=== PATIENT | female | born 1980 | race American Indian/Alaskan Native ===

== ENCOUNTER 2019-03-10 12:58 | Inpatient (IN) | payer OTHER ==
[~2019-03-10] VITALS: Ht 170.2 cm; Wt 73.5 kg
[2019-03-10] MEDS ORDERED: PRENATAL TABLE1 EACH PO (13:57)
[2019-03-10] MEDS ORDERED: FOLIC ACID1 MG PO (13:58)
[2019-03-10] MEDS ORDERED: IRON325 MG PO (13:58)
== END 2019-03-11 11:45 | disposition home or self-care (01) | DRG 832 ==
LOC: OBS/DEL 12:58 → LDR 13:03 → OBS/DEL 13:03 → LDR 03-11 11:45
PROVIDERS: ADMIT Specialist
PROC: BY4GZZZ Ultrasonography of Third Trimester, Multiple Gestation (ICD-10-PCS; principal; 2019-03-10)
PROC: 4A1HXCZ Monitoring of Products of Conception, Cardiac Rate, External Approach (ICD-10-PCS; 2019-03-10)
DX: O30.003 Twin pregnancy, unspecified number of placenta and unspecified number of amniotic sacs, third trimester (principal); O47.03 False labor before 37 completed weeks of gestation, third trimester; Z34.03 Encounter for supervision of normal first pregnancy, third trimester

== ENCOUNTER 2019-04-21 07:08 | Inpatient (IN) | payer OTHER ==
[~2019-04-21] VITALS: Ht 170.2 cm; Wt 2244.0 kg
[~2019-04-21 07:08] MED LIST: FOLIC ACID1 MG PO; IRON325 MG PO; PRENATAL TABLE1 EACH PO
== END 2019-04-27 19:29 | disposition home or self-care (01) | DRG 786 ==
LOC: SURG-SUITE 07:08 → LDR 07:08 → O/R 11:43 → OB/GYN 13:28 → SURG-SUITE 14:49
PROVIDERS: ADMIT Specialist
PROC: 4A1HXCZ Monitoring of Products of Conception, Cardiac Rate, External Approach (ICD-10-PCS; 2019-04-21)
PROC: 10D00Z1 Extraction of Products of Conception, Low, Open Approach (ICD-10-PCS; principal; 2019-04-21 11:00)
DX: O82 Encounter for cesarean delivery without indication (principal); O45.8X3 Other premature separation of placenta, third trimester; O32.1XX1 Maternal care for breech presentation, fetus 1; O30.003 Twin pregnancy, unspecified number of placenta and unspecified number of amniotic sacs, third trimester; Z3A.36 36 weeks gestation of pregnancy; Z37.2 Twins, both liveborn